=== PATIENT | female | born 1965 | race Caucasian/White ===

== ENCOUNTER → 2017-10-04 10:25 | Outpatient (POV) | payer MEDICARE, MEDICAID, SELFPAY ==
[2017-10-04 10:47] VITALS: BP 152/81; PULSE 76; RESP 18; O2SAT 100; BMI 42.3
--- NOTE | 2017-10-04 11:01 | HMH.PAINSOAP ---
[facility] Pain Management SOAP Note Subjective:: This patient is a pleasant 52-year-old male that is in a wheelchair with a previous history of rheumatoid arthritis and multiple joint pain and back pain. Patient is being seen by us today for follow-up visit after starting diclofenac 75 mg 1 p.o. twice daily. Patient also taking Lyrica. Valium. Butrans patch. These medication from her BP. Patient seems to be doing fair. 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 I was able to communicate with the patient slightly by writing things down Objective:: Patient's awake alert oriented ?3. In no acute distress. Patient sitting in wheelchair. She is deaf so there is an associate professor plant pathology is assisting with translation. Patient has no gross sensory deficit. Patient is wheelchair-bound. Assessment:: History of chronic rheumatoid arthritis. Chronic pain syndrome. Degenerative disc disease lumbar spine Plan:: We will not make any changes at this time. Patient is welcome to see us on a as needed basis. Otherwise, she will continue receiving medications from her PCP.
--- NOTE | 2017-10-04 11:04 | P.CONS_ITS ---
[facility] Pain Management SOAP Note Subjective:: This patient is a pleasant 52-year-old male that is in a wheelchair with a previous history of rheumatoid arthritis and multiple joint pain and back pain. Patient is being seen by us today for follow-up visit after starting diclofenac 75 mg 1 p.o. twice daily. Patient also taking Lyrica. Valium. Butrans patch. These medication from her BP. Patient seems to be doing fair. 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 I was able to communicate with the patient slightly by writing things down Objective:: Patient's awake alert oriented ?3. In no acute distress. Patient sitting in wheelchair. She is deaf so there is an telemetry technician is assisting with translation. Patient has no gross sensory deficit. Patient is wheelchair- bound. Assessment:: History of chronic rheumatoid arthritis. Chronic pain syndrome. Degenerative disc disease lumbar spine Plan:: We will not make any changes at this time. Patient is welcome to see us on a as needed basis. Otherwise, she will continue receiving medications from her PCP.
== END ==
PROVIDERS: PCP Internal Medicine Adolescent Medicine; Visit Provider Nurse Anesthetist, Certified Registered
DX: M06.9 Rheumatoid arthritis, unspecified (principal); G89.4 Chronic pain syndrome
CPT/HCPCS: 99212

== ENCOUNTER 2017-12-15 10:57 | Emergency (ER) | payer MEDICARE, MEDICAID, SELFPAY ==
[2017-12-15 10:58] VITALS: BP 165/74; PULSE 86; RESP 16; O2SAT 97
[2017-12-15 11:00] VITALS: BP 162/90; PULSE 91; RESP 20; TEMP 37.1; O2SAT 99; BMI 31.8
[2017-12-15 11:20] LABS: Basophils % 0.1 % (0.1-2.0); Eosinophils # 0.1 K/mm3 (0.0-0.4); Eosinophils % 1.2 % (0.1-12.0); Hematocrit 34.9 % (37.0-47.0); Hemoglobin 11.1 g/dL (12.2-16.2); Lymphocytes # 1.3 K/mm3 (0.7-4.5); Mean Corpuscular HGB Conc 31.8 g/dL (31.8-35.4); Mean Corpuscular Hemoglobin 25.3 pg (27.0-31.2); Mean Corpuscular Volume 79.7 fl (81-99); Mean Platelet Volume 7.4 fl (7.4-10.4); Monocytes # 0.3 K/mm3 (0.1-1.0); Monocytes % 4.9 % (1.7-9.3); Neutrophils # 4.1 K/mm3 (1.8-7.8); Neutrophils % 71.7 % (37.0-80.0); Platelet Count 280 K/mm3 (142-424); Red Blood Count 4.38 M/mm3 (4.20-5.40); Red Cell Distribution Width 12.9 % (11.5-17.5); White Blood Count 5.7 K/mm3 (4.8-10.8)
--- NOTE | 2017-12-15 11:20 | HMH.EDGENADL ---
ED Disposition Clinical Impression: Rectal bleeding Disposition: Home, Self-Care Condition on Discharge: Good Instructions: DI for Rectal Bleeding Additional Instructions: Dr. Flores will institute treatment and follow-up. Call him for further instructions. Referrals: Jeffery Flores MD [Primary Care Provider] - - Critical Care Critical Care Time: No Attestation: On , the high probability of a clinically significant, sudden or life threatening deterioration of the following system(s) required my full and direct attention, intervention and personal management. The time I documented below is in addition to time spent performing reported procedures but includes the following listed in this critical care notation. Medical Decision Making - Mohsen Inquiry Pt receiving controlled substance: No Vital Signs: 12/15/17 10:58 12/15/17 11:00 12/15/17 13:58 Temperature 98.7 F Temperature Source Oral Pulse Rate [Right Radial] 86 91 H 82 Respiratory Rate 16 20 16 Blood Pressure [Right Arm] 165/74 162/90 159/94 Blood Pressure Mean [Right Arm] 104 114 115 Blood Pressure Source [Right Arm] Automatic Cuff Blood Pressure Position [Right Arm] Sitting 02 Sat by Pulse Oximetry 97 99 96 Oxygen Delivery Method Room Air 12/15/17 16:00 Temperature Temperature Source Pulse Rate [Right Radial] 86 Respiratory Rate 16 Blood Pressure [Right Arm] 141/85 Blood Pressure Mean [Right Arm] 103 Blood Pressure Source [Right Arm] Blood Pressure Position [Right Arm] 02 Sat by Pulse Oximetry 97 Oxygen Delivery Method - Lab Data Lab Results 12/15/17 11:12: WBC 5.7, RBC 4.38, Hgb 11.1 L, Hct 34.9 L, MCV 79.7 L, MCH 25.3 L, MCHC 31.8, RDW 12.9, Plt Count 280, MPV 7.4, Neut % (Auto) 71.7, Lymph % (Auto) 22.0, [place] % (Auto) 4.9, Eos % (Auto) 1.2, Baso % (Auto) 0.1, Neut # (Auto) 4.1, Lymph # (Auto) 1.3, [place] # (Auto) 0.3, Eos # (Auto) 0.1, Baso # (Auto) 0.0 12/15/17 11:25: Stool Occult Blood Positive A 12/15/17 11:27: Sodium 140, Potassium 3.5, Chloride 100, Carbon Dioxide 34 H, Anion Gap 9.5, BUN 12, Creatinine 0.74, Estimated Creat Clear 116, Estimated GFR 83, Est GFR ( Amer) 100, Glucose 135 H, Calcium 9.2, Total Bilirubin 0.3, AST 9 L, ALT 21, Alkaline Phosphatase 158 H, Total Protein 8.0, Albumin 3.7, Globulin 4.3 H, Albumin/Globulin Ratio 0.9 L 12/15/17 11:27: PT 10.0, INR 0.93, APTT 26.5 12/15/17 12:05: Urine Color Yellow, Urine Appearance Clear, Urine pH 7.0, Ur Specific [place] 1.010, Urine Protein Negative, Urine Glucose (UA) Negative, Urine Ketones Negative, Urine Blood 3+, Urine Nitrate Negative, Urine Bilirubin Negative, Urine Urobilinogen 0.2, Ur Leukocyte Esterase Trace, Urine RBC 3-5, Urine WBC 5-10, Ur Squamous Epith Cells 5-10, Urine Bacteria 1+ Result diagrams: 12/15/17 11:12 12/15/17 11:27 Orders (Tests/Meds): ED MEDICATIONS Discontinued Medications Generic Name Dose Route Start Last Admin Trade Name Freq PRN Reason Stop Dose Admin Hydrocodone Bitart/Acetaminophen 1 tab 12/15/17 16:14 12/15/17 16:16 [place] 5/325mg Tablet PO 12/15/17 16:15 1 tab ONCE ONE Administration Diatrizoate Meglum/Diatrizoate Sod 30 ml 12/15/17 11:34 12/15/17 11:38 Gastrografin 66%-10% 30ml PO 12/15/17 11:35 30 ml ONCE ONE Administration Iopamidol 75 ml 12/15/17 14:51 12/15/17 14:51 [id number]; 75ml Vial IV 12/15/17 14:52 75 ml ONCE ONE Administration Sodium Chloride 10 ml 12/15/17 14:51 12/15/17 14:51 Rad-Saline Flush 10ml Syringe IV 12/15/17 14:52 10 ml ONCE ONE Administration - CT Data CT Scan: Abdomen, Pelvis Time Received: 15:[address] Reviewed: Yes: I have viewed the radiologist's interpretation Findings Narrative: No acute intra-abdominal or intrapelvic findings Medical Decision Narrative: 11:20 AM: Family is now here and they can sign to communicate with the patient. Case discussed Dr. Flores. Discharge back [facility] and he will
--- NOTE | 2017-12-15 11:23 | ED_ITS ---
ED Disposition Clinical Impression: Rectal bleeding Disposition: Home, Self-Care Condition on Discharge: Good Instructions: DI for Rectal Bleeding Additional Instructions: Dr. Flores will institute treatment and follow-up. Call him for further instructions. Referrals: Jeffery Flores MD [Primary Care Provider] - - Critical Care Critical Care Time: No Attestation: On , the high probability of a clinically significant, sudden or life threatening deterioration of the following system(s) required my full and direct attention, intervention and personal management. The time I documented below is in addition to time spent performing reported procedures but includes the following listed in this critical care notation. Medical Decision Making - Mohsen Inquiry Pt receiving controlled substance: No Vital Signs: 12/15/17 10:58 12/15/17 11:00 12/15/17 13:58 Temperature 98.7 F Temperature Source Oral Pulse Rate [Right Radial] 86 91 H 82 Respiratory Rate 16 20 16 Blood Pressure [Right Arm] 165/74 162/90 159/94 Blood Pressure Mean [Right Arm] 104 114 115 Blood Pressure Source [Right Arm] Automatic Cuff Blood Pressure Position [Right Arm] Sitting 02 Sat by Pulse Oximetry 97 99 96 Oxygen Delivery Method Room Air 12/15/17 16:00 Temperature Temperature Source Pulse Rate [Right Radial] 86 Respiratory Rate 16 Blood Pressure [Right Arm] 141/85 Blood Pressure Mean [Right Arm] 103 Blood Pressure Source [Right Arm] Blood Pressure Position [Right Arm] 02 Sat by Pulse Oximetry 97 Oxygen Delivery Method - Lab Data Lab Results 12/15/17 11:12: WBC 5.7, RBC 4.38, Hgb 11.1 L, Hct 34.9 L, MCV 79.7 L, MCH 25.3 L, MCHC 31.8, RDW 12.9, Plt Count 280, MPV 7.4, Neut % (Auto) 71.7, Lymph % ( Auto) 22.0, [place] % (Auto) 4.9, Eos % (Auto) 1.2, Baso % (Auto) 0.1, Neut # (Auto ) 4.1, Lymph # (Auto) 1.3, [place] # (Auto) 0.3, Eos # (Auto) 0.1, Baso # (Auto) 0.0 12/15/17 11:25: Stool Occult Blood Positive A 12/15/17 11:27: Sodium 140, Potassium 3.5, Chloride 100, Carbon Dioxide 34 H, Anion Gap 9.5, BUN 12, Creatinine 0.74, Estimated Creat Clear 116, Estimated GFR 83, Est GFR ( Amer) 100, Glucose 135 H, Calcium 9.2, Total Bilirubin 0.3, AST 9 L, ALT 21, Alkaline Phosphatase 158 H, Total Protein 8.0, Albumin 3.7 , Globulin 4.3 H, Albumin/Globulin Ratio 0.9 L 12/15/17 11:27: PT 10.0, INR 0.93, APTT 26.5 12/15/17 12:05: Urine Color Yellow, Urine Appearance Clear, Urine pH 7.0, Ur Specific [place] 1.010, Urine Protein Negative, Urine Glucose (UA) Negative, Urine Ketones Negative, Urine Blood 3+, Urine Nitrate Negative, Urine Bilirubin Negative, Urine Urobilinogen 0.2, Ur Leukocyte Esterase Trace, Urine RBC 3-5, Urine WBC 5-10, Ur Squamous Epith Cells 5-10, Urine Bacteria 1+ Result diagrams: 12/15/17 11:12 12/15/17 11:27 Orders (Tests/Meds): ED MEDICATIONS Discontinued Medications Generic Name Dose Route Start Last Admin Trade Name Freq PRN Reason Stop Dose Admin Hydrocodone Bitart/Acetaminophen 1 tab 12/15/17 16:14 12/15/17 16:16 [place] 5/325mg Tablet PO 12/15/17 16:15 1 tab ONCE ONE Administration Diatrizoate Meglum/Diatrizoate Sod 30 ml 12/15/17 11:34 12/15/17 11:38 Gastrografin 66%-10% 30ml PO 12/15/17 11:35 30 ml ONCE ONE Administration Iopamidol
[2017-12-15 11:50] LABS: Occult Blood,Stool Positive (Negative)
[2017-12-15 11:51] LABS: Activated Partial Thrombo Time 26.5 seconds (23.6-34.0); Alanine Aminotransferase 21 U/L (12-78); Albumin Level 3.7 gm/dL (3.4-5.0); Albumin/Globulin Ratio 0.9 (1.1-1.8); Alkaline Phosphatase 158 U/L (46-116); Anion Gap 9.5 mEq/L (5-15); Aspartate Amino Transferase 9 U/L (15-37); Bilirubin,Total 0.3 mg/dL (0.2-1.0); Blood Urea Nitrogen 12 mg/dL (7-18); Calcium 9.2 mg/dL (8.5-10.1); Carbon Dioxide 34 mmol/L (21.0-32.0); Chloride 100 mmol/L (98-107); Creatinine Clearance Estimated 116 mL/min (0-300); Creatinine,Serum 0.74 mg/dL (0.55-1.02); Estimated Glomerular Filt Rate 83 ml/min (>60); GFR (African American) 100 ML/MIN (>60); Globulin 4.3 gm/dl (1.3-3.2); Glucose 135 mg/dL (74-106); INR 0.93 (0.9-1.1); Potassium 3.5 mmoL/L (3.5-5.1); Sodium 140 mmol/L (136-145)
[2017-12-15 12:18] LABS: Microscopic, Urine URINE MICROSCOPIC (MICROSCOPIC)
[2017-12-15 12:21] LABS: Appearance,Urine CLEAR (Clear); Bilirubin,Urine Negative (Negative); Blood, Urine 3+ (Negative); Color,Urine YELLOW (Yellow); Glucose,Urine (UA) Negative (Negative); Ketones,Urine Negative (Negative); Leukocyte Esterase,Urine TRACE (Negative); Nitrate,Urine Negative (Negative); Protein,Urine Negative (Negative); Urobilinogen,Urine 0.2 EU/dl (0.2)
[2017-12-15 12:50] LABS: Bacteria,Urine 1+ /lpf
--- NOTE | 2017-12-15 13:20 | PC.NURSE ---
Addendum entered by Amanda Whiting RN 12/15/17 14:39: FELISHA Iglesias stated that pt is deaf, states pt is able to read lips. Pt family is at BS at this time, they communicate with her through sign language. Original Note: Report received from FELISHA Iglesias at this time.
[2017-12-15 13:58] VITALS: BP 159/94; PULSE 82; RESP 16; O2SAT 96
--- NOTE | 2017-12-15 14:12 | CT_ITS ---
CT abdomen pelvis w con CLINICAL INDICATION: Rectal Bleeding ITS.REASON: rectal bleeding ORDERING PHYSICIAN: Amando Nolan MD PATIENT AGE: 52 years COMPARISON: 07/13/2016 TECHNIQUE: Axial images obtained with sagittal and coronal reformats. All CT scans at the facility use one or more dose reduction, viz: automated exposure control; ma/kV adjustment per patient size (including targeted exams where dose is matched to indication; i.e. head); or iterative reconstruction technique. PROCEDURE: Oral Contrast: Gastroview IV Contrast: 75 mL's of Isovue-370 . FINDINGS: The lung bases are clear. No focal liver lesion. Prior cholecystectomy. No ductal dilatation. The spleen is unremarkable. There is mild pancreatic atrophy. A rounded fat density lesion involves the left adrenal gland which measures 17 mm consistent with an adrenal myelolipoma. No hydronephrosis or obstructing renal or ureteral calculi. There is a 9 mm isodensity in the mid to lower pole the right kidney consistent with renal cyst. There is a medium-sized umbilical hernia which contains fat. Artifact is present from bilateral hip prosthesis obscuring much of the pelvic structures. No obvious pelvic mass or abnormal fluid collection. There is mild amount retained colonic feces in the pelvis. There is a prominent fatty ileocecal valve variant. Prior hysterectomy. Multilevel degenerative disc disease of the thoracic lumbar spine with multilevel platyspondylia IMPRESSION: 1. No acute abdominal pelvic findings. 2. Multiple nonacute findings as described above.
--- NOTE | 2017-12-15 14:21 | PC.NURSE ---
Pt to CT
--- NOTE | 2017-12-15 15:30 | PC.NURSE ---
RIGO CORTEZ speaking with Dr. Flores
[2017-12-15 16:00] VITALS: BP 141/85; PULSE 86; RESP 16; O2SAT 97
--- NOTE | 2017-12-15 16:08 | PC.NURSE ---
Contacted Yoselin, pt sister in law to notify her that pt will be discharged back to the intermediate per after speaking with Dr. Flores. Yoselin and her were the family present with pt in ER but had stepped out to go to an appt. I notified pt that I have spoken with Yoselin.
[2017-12-15 16:56] VITALS: BP 153/86; PULSE 64; RESP 18; TEMP 36.7; O2SAT 97
--- NOTE | 2017-12-15 17:10 | PC.NURSE ---
Report called to CHAD Bazzi at [facility].
== END 2017-12-15 17:00 | disposition home or self-care (01) ==
PROVIDERS: Emergency Provider Emergency Medicine; Family Provider Internal Medicine Adolescent Medicine; PCP Internal Medicine Adolescent Medicine
DX: K62.5 Hemorrhage of anus and rectum (principal)
CPT/HCPCS: 36415; 74177; 80053; 81001; 82272; 85025; 85610; 85730; 99284; G0328; Q9967

== ENCOUNTER → 2018-02-18 08:24 | Outpatient (CLI) | payer MEDICARE, MEDICAID, SELFPAY ==
--- NOTE | 2018-02-18 08:25 | FL_ITS ---
PR barium enema Ordering Physician: Osiel Peres MD Patient Age: 52 years: Female HISTORY: ITS.REASON: spastic colon,rectal bleeding,anemia TECHNIQUE: Air-contrast BE performed. By Dr. Huff Difficult patient 6 minutes 40 seconds fluoroscopy time COMPARISON : CT abdomen from December 15, 2017 FINDINGS. Difficult patient. Impaired hearing Patient does difficulty following commands, but cooperative. There was some initial mild irritability at the sigmoid colon but eventually did fill. Redundant sigmoid colon with a few diverticuli most evident at the sigmoid colon. This includes a tiny forming prediverticulum as well. We were finally able to fill the entire long colon.. Transverse colon is slightly redundant as well. Adequate filling towards cecum. Generous fatty ileocecal valve noted.. No reflux into the terminal ileum. Appendix not visualized. The images reveal no obstructing or constricting lesion. No persistent filling defect of concern identified. Only some minimal semisolid stool encountered at the at the hepatic flexure and transverse colon, right colon. Only slightly limited study but overall satisfactory. The No obstructing or constricting lesions. We were eventually able obtained. Filling of the right colon and cecum. No significant findings There are a few tiny diverticula and developing prediverticuli seen throughout the sigmoid colon. Clips right upper quadrant from cholecystectomy. IMPRESSION: 1. No suspicious findings at the colon. No obstructing or constricting lesion evident. 2.. I would note that Minimal residual semisolid stool right colon & hepatic flexure slightly decreases the sensitivity of the evaluation of these regions.. But These areas demonstrate normal contour with no prominent findings... 3. Developing Diverticulosis throughout the redundant sigmoid colon. Mild irritability, initial encountered at sigmoid colon but eventual good filling with no lesions evident here. 4. Bilateral JOSE... Fracture line medial left acetabulum, beneath acetabular cup prosthesis.. Likely long-standing fracture defect. Similar appearance seen on November CT supporting this long-standing nature- but warrants ongoing ORTHOPEDIC Follow-Up, particularly if they are unaware of such.
== END ==
PROVIDERS: Family Provider Internal Medicine Adolescent Medicine; PCP Internal Medicine Adolescent Medicine; Visit Provider Surgery
DX: K62.5 Hemorrhage of anus and rectum (principal); K58.9 Irritable bowel syndrome, unspecified; D64.9 Anemia, unspecified
CPT/HCPCS: 74270

== ENCOUNTER → 2018-03-10 08:25 | Outpatient (CLI) | payer MEDICARE, MEDICAID, SELFPAY ==
--- NOTE | 2018-03-10 08:26 | FL_ITS ---
FL upper GI small bowel HISTORY: Stomach pain, anemia ITS.REASON: stomach pain ORDERING PHYSICIAN: Osiel Peres MD PATIENT AGE: 52 years FINDINGS: Manager Animation exam shows bilateral total hip prosthesis. A fracture is noted through the left acetabulum extending into the medial cortex of the hip. This is old. There was mild esophageal dysmotility with tertiary contractions. No esophageal lesion or hernia evident. These make and duodenum are unremarkable without evidence of mass or ulcer. Small bowel has an unremarkable appearance. No obstruction, mucosal or millimeters, or masses are evident. Spot views of the terminal ileum are unremarkable. IMPRESSION: 1. Mild esophageal dysmotility 2. Otherwise negative upper GI and small bowel follow-through FLUOROSCOPY TIME : 2 minutes and 15 seconds.
== END ==
PROVIDERS: Family Provider Internal Medicine Adolescent Medicine; PCP Internal Medicine Adolescent Medicine; Visit Provider Surgery
DX: K58.9 Irritable bowel syndrome, unspecified (principal); K62.5 Hemorrhage of anus and rectum; D64.9 Anemia, unspecified
CPT/HCPCS: 74245

== ENCOUNTER 2019-07-06 08:00 | Outpatient (RCR) | payer MEDICARE, MEDICAID, SELFPAY ==
--- NOTE | 2019-06-19 09:59 | HMH.PTOPWND ---
Rehab Outpt Wound Evaluation Rehab OP Wound Evaluation Start: 06/19/19 08:59 Freq: Status: Active Protocol: Document 06/19/19 09:28 AVELINO (Rec: 06/19/19 09:37 PHORNE [id number]) Electronically Signed By Damion Blanca, PT 06/19/19 09:28 Subjective/History History History Pt is 54 yowf who presents with c/o B LE edema for several years, now worse with blisters and open sore. She is deaf and non-verbal at baseline, but can read and understand sign language. She has on large open sore on the left lower leg which is painful to touch. Both loer legs are sore and tender to palpation. She also in unable to stand and uses a powered w/ c for all mobility. She resides at a [facility] and they use a lift to transfer her to/from the chair. She has hx of anxiety, depression, HTN, HL, DM-II, seizures, anemia, B JOSE, and right knee surgery. Subjective Subjective Pt c/o pain in B lower legs, left > right. Wound Eval Wound Left Medial Sapp Wound Type Stasis Ulcer Wound Length (cm) 3.0 Wound Width (cm) 4.0 Wound Bed Appearance Beefy Red,Yellow Percentage Granulated (%) 95 Percentage of Slough (%) 5 Wound Margins Description Well Defined Surrounding Tissue Appearance [place] Edema Type Pitting Edema Degree 3+ Query Text:1+ Trace, Barely Detectable, Rebound 15-30 seconds 2+ Moderate, Slight Indentation, Rebound 10-20 seconds 3+ Deep, Deeper Indentation, Rebound > 30 seconds 4+ Very Deep, Rebound > 60 seconds Edema Appearance Weeping,Tight Drainage Description Serous Drainage Amount Large Primary Dressing Unna Boot Wound Secondary Dressing Type Gauze Roll/Wrap,Adhering Gauze Roll Wound Debridement Method Gauze Wound Debridement Amount of Tissue Minimal Removed Dressing Change Patient Tolerance Tolerated Well Lymphedema Eval Classification of Lymphedema Secondary Lymphedema Yes Stemmer's sign Stemmer's Sign yes
== END 2019-07-06 08:05 | disposition home or self-care (01) ==
LOC: PT 08:00
PROVIDERS: PCP Internal Medicine Adolescent Medicine; Visit Provider Internal Medicine Adolescent Medicine
DX: R60.9 Edema, unspecified (principal); I89.0 Lymphedema, not elsewhere classified
CPT/HCPCS: 29580; 97140; 97163; 97597

== ENCOUNTER → 2020-06-28 10:07 | Outpatient (CLI) | payer MEDICARE, MEDICAID, SELFPAY ==
--- NOTE | 2020-06-28 10:16 | CT_ITS ---
Procedure: CT ANGIO ABDOMEN/FEMORAL CLINICAL HISTORY: nonhealing venous ulcer bilat non healing ulcers on feet COMPARISON: CT ABDPELW CT abdomen pelvis w con from 12/15/2017 TECHNIQUE: IV Contrast: 100ml Optiray 350 Axial images obtained with sagittal and coronal reformats. All CT scans at the facility use one or more dose reduction, viz: automated exposure control, ma/kV adjustment per patient size (including targeted exams where dose is matched to indication, i.e. head), or iterative reconstruction technique. FINDINGS: There is a mild amount of calcific plaque along the infrarenal abdominal aorta. No aortic stenosis or aneurysmal dilatation. There are 2 left renal arteries and 1 right renal artery. No evidence of renal artery stenosis. The celiac and SMA and PAVAN are unremarkable. Artifact is present from bilateral hip prosthesis which obscures fine detail in this area. The arterial bolus is also somewhat less than optimal but satisfactory. Other than the metallic artifact, the iliac and femoral vessels have an unremarkable appearance with no evidence of stenosis or occlusion. The superficial femoral arteries pop and popliteal arteries are unremarkable. There is 3 vessel runoff to the ankles on both sides. Nonvascular findings: scattered small mesenteric and retroperitoneal lymph nodes. Small umbilical hernia containing fat. Artifact from bilateral hip prosthesis. There is some mild nonspecific thickening of the ascending colon and transverse colon which could be due to nondistention or colitis. There is a moderate amount of subcutaneous edema in the lower extremities bilaterally. IMPRESSION: 1. Unremarkable abdominal aortogram and bilateral lower extremity runoff. Please see above for detail. 2. Other nonacute findings as described above. Dictated by: Axel Jimenez MD 06/30/2020 09:06 Axel Jimenez MD in [place] 06/30/2020 09:06
== END ==
PROVIDERS: PCP Internal Medicine Adolescent Medicine; Visit Provider Internal Medicine Adolescent Medicine
DX: L97.211 Non-pressure chronic ulcer of right calf limited to breakdown of skin (principal); L97.221 Non-pressure chronic ulcer of left calf limited to breakdown of skin
CPT/HCPCS: 75635; Q9967

== ENCOUNTER → 2020-08-15 10:01 | Outpatient (CLI) | payer MEDICARE, MEDICAID, SELFPAY ==
[2020-08-15 10:46] LABS: Basophils % 0.1 % (0.1-2.0); Eosinophils % 0.2 % (0.1-12.0); Hematocrit 29.2 % (37.0-47.0); Hemoglobin 8.9 g/dL (12.2-16.2); Lymphocytes # 1.3 K/mm3 (0.7-4.5); Lymphocytes % 18.8 % (10-50); Mean Corpuscular HGB Conc 30.5 g/dL (31.8-35.4); Mean Corpuscular Volume 78.7 fl (81-99); Mean Platelet Volume 7.3 fl (7.4-10.4); Monocytes # 0.4 K/mm3 (0.1-1.0); Monocytes % 5.6 % (1.7-9.3); Neutrophils # 5.3 K/mm3 (1.8-7.8); Neutrophils % 75.3 % (37.0-80.0); Platelet Count 401 K/mm3 (142-424); Red Blood Count 3.71 M/mm3 (4.20-5.40); Red Cell Distribution Width 17.1 % (11.5-17.5)
[2020-08-15 13:50] LABS: Folate 3.74 ng/mL; Vitamin B12 > 1000 pg/mL (239-931)
[2020-08-15 14:09] LABS: Ferritin 26.5 ng/ml (11.1-264)
[2020-08-16 16:20] LABS: Haptoglobin 339 mg/dL (33-346)
[2020-08-16 17:07] LABS: Albumin 3.2 g/dL (2.9-4.4); Alpha-1-Globulin 0.2 g/dL (0.0-0.4); Alpha-2-Globulin 1.2 g/dL (0.4-1.0); Free Kappa Lt Chains 50.5 mg/L (3.3-19.4); Free Lambda Lt Chains 32.1 mg/L (5.7-26.3); Gamma Globulin 0.9 g/dL (0.4-1.8); Hemoglobin (Hgb) Solubility Negative (Negative); Immunoglobulin A, Qn 138 mg/dL (87-352); Immunoglobulin G, Qn 962 mg/dL (586-1602); Immunoglobulin M, Qn 41 mg/dL (26-217); Protein, Total 6.5 g/dL (6.0-8.5)
== END ==
PROVIDERS: Visit Provider Internal Medicine Medical Oncology
DX: D64.9 Anemia, unspecified (principal)
CPT/HCPCS: 36415; 82607; 82728; 82746; 82784; 83010; 83021; 83883; 84155; 84165; 85025; 85660; 86334

== ENCOUNTER → 2020-10-08 15:58 | Outpatient (CLI) | payer MEDICARE, MEDICAID, SELFPAY ==
[2020-10-08 16:11] LABS: Basophils % 0.2 % (0.1-2.0); Eosinophils % 0.4 % (0.1-12.0); Hematocrit 25.8 % (37.0-47.0); Lymphocytes # 1.4 K/mm3 (0.7-4.5); Lymphocytes % 16.6 % (10-50); Mean Corpuscular HGB Conc 30.6 g/dL (31.8-35.4); Mean Corpuscular Hemoglobin 24.3 pg (27.0-31.2); Mean Corpuscular Volume 79.3 fl (81-99); Mean Platelet Volume 7.9 fl (7.4-10.4); Monocytes # 0.4 K/mm3 (0.1-1.0); Monocytes % 5.3 % (1.7-9.3); Neutrophils # 6.4 K/mm3 (1.8-7.8); Neutrophils % 77.5 % (37.0-80.0); Platelet Count 336 K/mm3 (142-424); Red Blood Count 3.25 M/mm3 (4.20-5.40); White Blood Count 8.2 K/mm3 (4.8-10.8)
[2020-10-08 16:13] LABS: Hemoglobin 7.9 g/dL (12.2-16.2)
== END ==
PROVIDERS: Visit Provider Nurse Practitioner Family
DX: D64.9 Anemia, unspecified (principal)
CPT/HCPCS: 85025

== ENCOUNTER → 2020-10-21 11:09 | Outpatient (CLI) | payer MEDICARE, MEDICAID, SELFPAY ==
[2020-10-21 14:30] LABS: Basophils % 0.3 % (0.1-2.0); Eosinophils # 0.1 K/mm3 (0.0-0.4); Eosinophils % 0.8 % (0.1-12.0); Hematocrit 26.9 % (37.0-47.0); Hemoglobin 8.4 g/dL (12.2-16.2); Lymphocytes # 1.3 K/mm3 (0.7-4.5); Lymphocytes % 15.9 % (10-50); Mean Corpuscular HGB Conc 31.3 g/dL (31.8-35.4); Mean Corpuscular Hemoglobin 23.8 pg (27.0-31.2); Mean Corpuscular Volume 75.9 fl (81-99); Mean Platelet Volume 8.9 fl (7.4-10.4); Monocytes # 0.4 K/mm3 (0.1-1.0); Monocytes % 4.4 % (1.7-9.3); Neutrophils # 6.3 K/mm3 (1.8-7.8); Neutrophils % 78.7 % (37.0-80.0); Platelet Count 325 K/mm3 (142-424); Red Blood Count 3.55 M/mm3 (4.20-5.40); Red Cell Distribution Width 16.3 % (11.5-17.5)
[2020-10-22 15:06] LABS: Occult Blood,Stool Negative (Negative)
== END ==
PROVIDERS: Visit Provider Nurse Practitioner Family
DX: D64.9 Anemia, unspecified (principal)
CPT/HCPCS: 82272; 85025; G0328

== ENCOUNTER → 2020-11-26 09:57 | Outpatient (CLI) | payer MEDICARE, MEDICAID, SELFPAY ==
[2020-11-26 14:06] LABS: Chloride 98 mmol/L (98-107)
[2020-11-26 14:07] LABS: Potassium 3.5 mmoL/L (3.5-5.1); Sodium 139 mmol/L (136-145)
[2020-11-26 14:09] LABS: Alanine Aminotransferase 17 U/L (12-78); Alkaline Phosphatase 95 U/L (38-126); Aspartate Amino Transferase 20 U/L (14-36); Bilirubin,Total 0.2 mg/dl (0.2-1.3); Blood Urea Nitrogen 19 mg/dl (7-17); Estimated Glomerular Filt Rate 39 ml/min (>60); GFR (African American) 47 ML/MIN (>60)
[2020-11-26 14:10] LABS: Albumin Level 3.5 g/dl (3.5-5.0); Albumin/Globulin Ratio 1.3 (1.1-1.8); Anion Gap 12.5 mEq/L (5-15); Calcium 8.9 mg/dl (8.4-10.2); Carbon Dioxide 32 mmol/L (22.0-30.0); Globulin 2.8 g/dL (1.3-3.2); Glucose 265 mg/dl (74-100); Total Protein,Serum 6.3 g/dl (6.3-8.2)
[2020-11-26 14:56] LABS: Basophils % 0.1 % (0.1-2.0); Eosinophils % 0.4 % (0.1-12.0); Hematocrit 25.1 % (37.0-47.0); Lymphocytes # 1.2 K/mm3 (0.7-4.5); Lymphocytes % 15.8 % (10-50); Mean Corpuscular HGB Conc 29.4 g/dL (31.8-35.4); Mean Corpuscular Hemoglobin 22.2 pg (27.0-31.2); Mean Corpuscular Volume 75.6 fl (81-99); Mean Platelet Volume 8.6 fl (7.4-10.4); Monocytes # 0.5 K/mm3 (0.1-1.0); Monocytes % 6.1 % (1.7-9.3); Neutrophils # 5.8 K/mm3 (1.8-7.8); Neutrophils % 77.6 % (37.0-80.0); Platelet Count 307 K/mm3 (142-424); Red Blood Count 3.31 M/mm3 (4.20-5.40); White Blood Count 7.4 K/mm3 (4.8-10.8)
[2020-11-26 14:59] LABS: Hemoglobin 7.4 g/dL (12.2-16.2)
== END ==
PROVIDERS: Visit Provider Nurse Practitioner Family
DX: K62.5 Hemorrhage of anus and rectum (principal)
CPT/HCPCS: 36415; 80053; 85025

== ENCOUNTER → 2020-12-30 09:26 | Outpatient (CLI) | payer MEDICARE, MEDICAID, SELFPAY ==
[2020-12-30 15:40] LABS: Basophils % 0.2 % (0.1-2.0); Eosinophils % 0.1 % (0.1-12.0); Hematocrit 25.7 % (37.0-47.0); Lymphocytes # 1.2 K/mm3 (0.7-4.5); Lymphocytes % 15.4 % (10-50); Mean Corpuscular HGB Conc 29.7 g/dL (31.8-35.4); Mean Corpuscular Hemoglobin 22.2 pg (27.0-31.2); Mean Corpuscular Volume 74.9 fl (81-99); Monocytes # 0.4 K/mm3 (0.1-1.0); Monocytes % 4.7 % (1.7-9.3); Neutrophils # 6.3 K/mm3 (1.8-7.8); Neutrophils % 79.6 % (37.0-80.0); Platelet Count 273 K/mm3 (142-424); Red Blood Count 3.43 M/mm3 (4.20-5.40); Red Cell Distribution Width 16.8 % (11.5-17.5)
[2020-12-30 15:52] LABS: Chloride 98 mmol/L (98-107)
[2020-12-30 15:53] LABS: Hemoglobin 7.6 g/dL (12.2-16.2); Potassium 3.3 mmoL/L (3.5-5.1); Sodium 139 mmol/L (136-145)
[2020-12-30 15:55] LABS: Alanine Aminotransferase 17 U/L (12-78); Alkaline Phosphatase 96 U/L (38-126); Aspartate Amino Transferase 21 U/L (14-36); Bilirubin,Total 0.2 mg/dl (0.2-1.3); Blood Urea Nitrogen 18 mg/dl (7-17); Estimated Glomerular Filt Rate 47 ml/min (>60); GFR (African American) 57 ML/MIN (>60)
[2020-12-30 15:56] LABS: Albumin Level 3.7 g/dl (3.5-5.0); Albumin/Globulin Ratio 1.5 (1.1-1.8); Anion Gap 13.3 mEq/L (5-15); Calcium 8.5 mg/dl (8.4-10.2); Carbon Dioxide 31 mmol/L (22.0-30.0); Globulin 2.4 g/dL (1.3-3.2); Glucose 152 mg/dl (74-100); Total Protein,Serum 6.1 g/dl (6.3-8.2)
== END ==
PROVIDERS: Visit Provider Internal Medicine Adolescent Medicine
DX: G80.9 Cerebral palsy, unspecified (principal); D64.9 Anemia, unspecified
CPT/HCPCS: 36415; 80053; 85025

== ENCOUNTER → 2021-01-06 07:53 | Outpatient (CLI) | payer MEDICARE, MEDICAID, SELFPAY ==
[2021-01-06 13:54] LABS: Basophils % 0.3 % (0.1-2.0); Eosinophils # 0.1 K/mm3 (0.0-0.4); Eosinophils % 1.1 % (0.1-12.0); Hemoglobin 8.2 g/dL (12.2-16.2); Lymphocytes # 1.4 K/mm3 (0.7-4.5); Lymphocytes % 19.8 % (10-50); Mean Corpuscular HGB Conc 30.2 g/dL (31.8-35.4); Mean Corpuscular Hemoglobin 22.5 pg (27.0-31.2); Mean Corpuscular Volume 74.2 fl (81-99); Mean Platelet Volume 7.8 fl (7.4-10.4); Monocytes # 0.4 K/mm3 (0.1-1.0); Monocytes % 5.8 % (1.7-9.3); Neutrophils # 5.3 K/mm3 (1.8-7.8); Neutrophils % 72.9 % (37.0-80.0); Platelet Count 299 K/mm3 (142-424); Red Blood Count 3.63 M/mm3 (4.20-5.40); Red Cell Distribution Width 16.4 % (11.5-17.5); White Blood Count 7.2 K/mm3 (4.8-10.8)
== END ==
PROVIDERS: Visit Provider Nurse Practitioner Family
DX: D64.9 Anemia, unspecified (principal)
CPT/HCPCS: 36415; 85025

== ENCOUNTER → 2021-01-13 15:47 | Outpatient (POV) | payer MEDICARE, MEDICAID, SELFPAY | PROVIDERS: Visit Provider Nurse Practitioner Family | DX: Z00.00 Encounter for general adult medical examination without abnormal findings (principal) ==

== ENCOUNTER → 2021-02-11 07:48 | Outpatient (CLI) | payer MEDICARE, MEDICAID, SELFPAY ==
[2021-02-11 14:24] LABS: Chloride 98 mmol/L (98-107); Sodium 139 mmol/L (136-145)
[2021-02-11 14:26] LABS: Basophils % 0.2 % (0.1-2.0); Blood Urea Nitrogen 23 mg/dl (7-17); Eosinophils % 0.4 % (0.1-12.0); Estimated Glomerular Filt Rate 43 ml/min (>60); GFR (African American) 52 ML/MIN (>60); Hematocrit 26.6 % (37.0-47.0); Hemoglobin 8.2 g/dL (12.2-16.2); Lymphocytes # 1.3 K/mm3 (0.7-4.5); Mean Corpuscular HGB Conc 30.8 g/dL (31.8-35.4); Mean Corpuscular Hemoglobin 22.6 pg (27.0-31.2); Mean Corpuscular Volume 73.6 fl (81-99); Mean Platelet Volume 8.4 fl (7.4-10.4); Monocytes # 0.4 K/mm3 (0.1-1.0); Monocytes % 5.7 % (1.7-9.3); Neutrophils # 5.2 K/mm3 (1.8-7.8); Neutrophils % 74.7 % (37.0-80.0); Platelet Count 306 K/mm3 (142-424); Red Blood Count 3.61 M/mm3 (4.20-5.40); Red Cell Distribution Width 17.7 % (11.5-17.5)
[2021-02-11 14:27] LABS: Alanine Aminotransferase 21 U/L (12-78); Albumin Level 3.5 g/dl (3.5-5.0); Albumin/Globulin Ratio 1.3 (1.1-1.8); Alkaline Phosphatase 101 U/L (38-126); Aspartate Amino Transferase 26 U/L (14-36); Bilirubin,Total 0.3 mg/dl (0.2-1.3); Calcium 8.6 mg/dl (8.4-10.2); Carbon Dioxide 32 mmol/L (22.0-30.0); Chol/HDL Ratio 4.1 (1-3.5); Cholesterol 168 mg/dl (140-200); Globulin 2.6 g/dL (1.3-3.2); Glucose 129 mg/dl (74-100); HDL Cholesterol 41 mg/dl (40-60); Iron 25 ug/dL (37-170); Total Protein,Serum 6.1 g/dl (6.3-8.2); Triglycerides 262 mg/dl (30-150); VLDL Cholesterol 52 mg/dL (0-40)
[2021-02-11 14:37] LABS: Total Iron Binding Capacity 299 ug/dL (265-497)
[2021-02-11 14:39] LABS: Direct LDL Cholesterol 86.84 mg/dL (100-129)
[2021-02-11 15:47] LABS: Hemoglobin A1C 7.8 % (4.0-6.0)
[2021-02-11 16:18] LABS: Vitamin B12 > 1000 pg/mL (239-931)
[2021-02-18 04:12] LABS: Oxcarbazepine 28 ug/mL (10-35)
== END ==
PROVIDERS: Visit Provider Nurse Practitioner Family
DX: G80.9 Cerebral palsy, unspecified (principal); I87.2 Venous insufficiency (chronic) (peripheral); E55.9 Vitamin D deficiency, unspecified; R56.9 Unspecified convulsions; E11.9 Type 2 diabetes mellitus without complications; Z79.84 Long term (current) use of oral hypoglycemic drugs
CPT/HCPCS: 36415; 80053; 80061; 80183; 82607; 83036; 83540; 83550; 85025

== ENCOUNTER → 2021-05-15 07:09 | Outpatient (CLI) | payer MEDICARE, MEDICAID, SELFPAY ==
[2021-05-15 15:31] LABS: Alanine Aminotransferase 27 U/L (12-78); Albumin Level 3.6 g/dl (3.5-5.0); Albumin/Globulin Ratio 1.4 (1.1-1.8); Alkaline Phosphatase 112 U/L (38-126); Anion Gap 12.4 mEq/L (5-15); Aspartate Amino Transferase 26 U/L (14-36); Bilirubin,Total 0.3 mg/dl (0.2-1.3); Blood Urea Nitrogen 20 mg/dl (7-17); Calcium 8.8 mg/dl (8.4-10.2); Carbon Dioxide 32 mmol/L (22.0-30.0); Chloride 99 mmol/L (98-107); Chol/HDL Ratio 4.9 (1-3.5); Cholesterol 176 mg/dl (140-200); Estimated Glomerular Filt Rate 47 ml/min (>60); GFR (African American) 56 ML/MIN (>60); Globulin 2.5 g/dL (1.3-3.2); Glucose 196 mg/dl (74-100); HDL Cholesterol 36 mg/dl (40-60); Potassium 4.4 mmoL/L (3.5-5.1); Sodium 139 mmol/L (136-145); Total Protein,Serum 6.1 g/dl (6.3-8.2); Triglycerides 378 mg/dl (30-150); VLDL Cholesterol 76 mg/dL (0-40)
[2021-05-15 15:32] LABS: Basophils % 0.3 % (0.1-2.0); Eosinophils % 0.3 % (0.1-12.0); Hematocrit 26.8 % (37.0-47.0); Hemoglobin 8.4 g/dL (12.2-16.2); Lymphocytes # 1.2 K/mm3 (0.7-4.5); Lymphocytes % 21.4 % (10-50); Mean Corpuscular HGB Conc 31.3 g/dL (31.8-35.4); Mean Corpuscular Hemoglobin 23.5 pg (27.0-31.2); Mean Corpuscular Volume 75.1 fl (81-99); Mean Platelet Volume 8.2 fl (7.4-10.4); Monocytes # 0.4 K/mm3 (0.1-1.0); Monocytes % 6.3 % (1.7-9.3); Neutrophils # 4.1 K/mm3 (1.8-7.8); Neutrophils % 71.7 % (37.0-80.0); Platelet Count 258 K/mm3 (142-424); Red Blood Count 3.57 M/mm3 (4.20-5.40); Red Cell Distribution Width 15.9 % (11.5-17.5); White Blood Count 5.7 K/mm3 (4.8-10.8)
[2021-05-15 15:42] LABS: Direct LDL Cholesterol 87.58 mg/dL (100-129)
[2021-05-15 16:16] LABS: Hemoglobin A1C 8.2 % (4.0-6.0)
[2021-05-18 15:37] LABS: Oxcarbazepine 23 ug/mL (10-35)
== END ==
LOC: LAB.CARL 07:10 → HMH.JM 07:17
PROVIDERS: Visit Provider Nurse Practitioner Family
DX: G80.9 Cerebral palsy, unspecified (principal); I10 Essential (primary) hypertension; E11.9 Type 2 diabetes mellitus without complications; E78.5 Hyperlipidemia, unspecified; Z51.81 Encounter for therapeutic drug level monitoring; Z79.84 Long term (current) use of oral hypoglycemic drugs
CPT/HCPCS: 36415; 80053; 80061; 80183; 83036; 85025

== ENCOUNTER → 2021-08-12 19:00 | Outpatient (CLI) | payer MEDICARE, MEDICAID, SELFPAY ==
[2021-08-12 19:19] LABS: Basophils % 0.4 % (0.1-2.0); Eosinophils % 0.1 % (0.1-12.0); Hematocrit 31.6 % (37.0-47.0); Hemoglobin 9.7 g/dL (12.2-16.2); Lymphocytes # 1.6 K/mm3 (0.7-4.5); Mean Corpuscular HGB Conc 30.8 g/dL (31.8-35.4); Mean Corpuscular Hemoglobin 24.2 pg (27.0-31.2); Mean Corpuscular Volume 78.4 fl (81-99); Mean Platelet Volume 8.8 fl (7.4-10.4); Monocytes # 0.4 K/mm3 (0.1-1.0); Monocytes % 5.3 % (1.7-9.3); Neutrophils # 5.1 K/mm3 (1.8-7.8); Neutrophils % 72.2 % (37.0-80.0); Platelet Count 278 K/mm3 (142-424); Red Blood Count 4.03 M/mm3 (4.20-5.40); Red Cell Distribution Width 15.8 % (11.5-17.5); White Blood Count 7.1 K/mm3 (4.8-10.8)
[2021-08-12 19:40] LABS: Alanine Aminotransferase 26 U/L (12-78); Albumin Level 3.6 g/dl (3.5-5.0); Albumin/Globulin Ratio 1.2 (1.1-1.8); Alkaline Phosphatase 156 U/L (38-126); Anion Gap 13.4 mEq/L (5-15); Aspartate Amino Transferase 33 U/L (14-36); Bilirubin,Total 0.2 mg/dl (0.2-1.3); Blood Urea Nitrogen 17 mg/dl (7-17); Calcium 8.7 mg/dl (8.4-10.2); Carbon Dioxide 30 mmol/L (22.0-30.0); Chloride 99 mmol/L (98-107); Chol/HDL Ratio 2.3 (1-3.5); Cholesterol 130 mg/dl (140-200); Estimated Glomerular Filt Rate 58 ml/min (>60); GFR (African American) 70 ML/MIN (>60); Globulin 2.9 g/dL (1.3-3.2); Glucose 200 mg/dl (74-100); HDL Cholesterol 57 mg/dl (40-60); Potassium 4.4 mmoL/L (3.5-5.1); Sodium 138 mmol/L (136-145); Total Protein,Serum 6.5 g/dl (6.3-8.2); Triglycerides 174 mg/dl (30-150); VLDL Cholesterol 35 mg/dL (0-40)
[2021-08-12 19:51] LABS: Direct LDL Cholesterol 52.08 mg/dL (100-129)
[2021-08-19 00:07] LABS: Oxcarbazepine 36 ug/mL (10-35)
== END ==
PROVIDERS: Visit Provider Nurse Practitioner Family
DX: D64.9 Anemia, unspecified (principal); R73.9 Hyperglycemia, unspecified; Z79.899 Other long term (current) drug therapy
CPT/HCPCS: 36415; 80053; 80061; 80183; 83036; 85025

== ENCOUNTER → 2021-08-25 08:06 | Outpatient (CLI) | payer MEDICARE, MEDICAID, SELFPAY ==
[2021-08-25 14:24] LABS: Chloride 89 mmol/L (98-107); Potassium 3.3 mmoL/L (3.5-5.1)
[2021-08-25 14:27] LABS: Blood Urea Nitrogen 16 mg/dl (7-17); Calcium 8.6 mg/dl (8.4-10.2); Carbon Dioxide 31 mmol/L (22.0-30.0); Estimated Glomerular Filt Rate 52 ml/min (>60); GFR (African American) 62 ML/MIN (>60); Glucose 175 mg/dl (74-100)
[2021-08-25 18:44] LABS: Anion Gap 10.3 mEq/L (5-15); Sodium 127 mmol/L (136-145)
== END ==
PROVIDERS: Visit Provider Nurse Practitioner Family
DX: Z01.812 Encounter for preprocedural laboratory examination (principal)
CPT/HCPCS: 36415; 80048

== ENCOUNTER → 2021-08-26 07:49 | Outpatient (CLI) | payer MEDICARE, MEDICAID, SELFPAY ==
[2021-08-26 16:08] LABS: Anion Gap 7.6 mEq/L (5-15); Blood Urea Nitrogen 19 mg/dl (7-17); Calcium 8.7 mg/dl (8.4-10.2); Carbon Dioxide 34 mmol/L (22.0-30.0); Chloride 98 mmol/L (98-107); Estimated Glomerular Filt Rate 52 ml/min (>60); GFR (African American) 62 ML/MIN (>60); Glucose 146 mg/dl (74-100); Potassium 3.6 mmoL/L (3.5-5.1); Sodium 136 mmol/L (136-145)
== END ==
PROVIDERS: Visit Provider Nurse Practitioner Family
DX: I50.32 Chronic diastolic (congestive) heart failure (principal)
CPT/HCPCS: 36415; 80048

== ENCOUNTER → 2021-08-26 09:51 | Outpatient (CLI) | payer MEDICARE, MEDICAID, SELFPAY | PROVIDERS: PCP Internal Medicine Adolescent Medicine; Visit Provider Internal Medicine Adolescent Medicine | DX: I70.213 Atherosclerosis of native arteries of extremities with intermittent claudication, bilateral legs (principal) ==

== ENCOUNTER → 2021-09-15 07:34 | Outpatient (CLI) | payer MEDICARE, MEDICAID, SELFPAY ==
[2021-09-19 05:32] LABS: Oxcarbazepine 25 ug/mL (10-35)
== END ==
PROVIDERS: Visit Provider Nurse Practitioner Family
DX: Z51.81 Encounter for therapeutic drug level monitoring (principal)
CPT/HCPCS: 36415; 80183

== ENCOUNTER → 2021-09-26 13:06 | Outpatient (CLI) | payer MEDICARE, MEDICAID, SELFPAY ==
[2021-09-26 13:52] LABS: Chloride 95 mmol/L (98-107); Sodium 137 mmol/L (136-145)
[2021-09-26 13:53] LABS: Potassium 4.5 mmoL/L (3.5-5.1)
[2021-09-26 13:55] LABS: Blood Urea Nitrogen 20 mg/dl (7-17); Estimated Glomerular Filt Rate 52 ml/min (>60); GFR (African American) 62 ML/MIN (>60)
[2021-09-26 13:56] LABS: Anion Gap 15.5 mEq/L (5-15); Calcium 9.2 mg/dl (8.4-10.2); Carbon Dioxide 31 mmol/L (22.0-30.0); Glucose 373 mg/dl (74-100)
[2021-09-26 14:02] LABS: Basophils % 0.3 % (0.1-2.0); Eosinophils % 0.1 % (0.1-12.0); Hematocrit 28.9 % (37.0-47.0); Hemoglobin 8.7 g/dL (12.2-16.2); Lymphocytes # 1.1 K/mm3 (0.7-4.5); Mean Corpuscular HGB Conc 30.2 g/dL (31.8-35.4); Mean Corpuscular Hemoglobin 23.7 pg (27.0-31.2); Mean Corpuscular Volume 78.6 fl (81-99); Mean Platelet Volume 8.1 fl (7.4-10.4); Monocytes # 0.4 K/mm3 (0.1-1.0); Monocytes % 6.4 % (1.7-9.3); Neutrophils # 4.8 K/mm3 (1.8-7.8); Neutrophils % 76.2 % (37.0-80.0); Platelet Count 347 K/mm3 (142-424); Red Blood Count 3.68 M/mm3 (4.20-5.40); Red Cell Distribution Width 16.6 % (11.5-17.5); White Blood Count 6.2 K/mm3 (4.8-10.8)
== END ==
PROVIDERS: Visit Provider Nurse Practitioner Family
DX: Z01.812 Encounter for preprocedural laboratory examination (principal); I10 Essential (primary) hypertension
CPT/HCPCS: 80048; 85025

== ENCOUNTER → 2021-10-01 08:21 | Day surgery (SDC) | payer MEDICARE, MEDICAID, SELFPAY ==
[2021-10-01] VITALS (11 sets, daily range): BP systolic 109–175; BP diastolic 41–101; PULSE 77–96; RESP 13–20; TEMP 36.7; O2SAT 90–96; BMI 45.8
--- NOTE | 2021-10-01 | IR_ITS ---
APPROVED REPORT Patient Location: Outpatient Vehicle Detailer: LAUREN Morales RT (R) PROCEDURES Catheter placed in the abdominal aorta Bilateral iliofemoral runoff INDICATION [place] claudication class V, Peripheral artery disease Informed consent was obtained prior to the procedure. COMPLICATIONS NONE Estimated Blood Loss: LESS THAN 10 ML TECHNIQUE 1% lidocaine used anesthetize anterior aspect of the right wrist. The right radial artery was accessed via Salinger technique and a 6 [place] hydrophilic sheath was placed in the right radial artery. An arterial cocktail was administered and the pigtail catheter was then advanced under fluoroscopic guidance into the abdominal aorta where abdominal aortography with bilateral iliac runoff was performed. At the end of the procedure the apparatus was removed the sheath was removed good hemostasis was achieved using TR banding patient was transferred the postop putting her stable condition ANGIOGRAPHIC RESULTS Distal abdominal aorta is normal Bilateral common internal and external iliac arteries are normal Bilateral common femoral arteries are normal Bilateral profunda femoris arteries are normal Bilateral superficial femoral and popliteal arteries are normal There is three-vessel runoff below the knees bilaterally IMPRESSION Three-vessel runoff Ulcers likely stemming from venous insufficiency PLAN 1. Treatment of venous insufficiency Electronically signed by : Dilan Day MD 10/01/2021 12:26:40
[2021-10-01 09:50] LABS: Coronavirus 19, PCR Not Detected (NotDetected); Influenza A, PCR Not Detected (NotDetected); Influenza B, PCR Not Detected (NotDetected)
[2021-10-01 09:55] LABS: Basophils # 0.1 K/mm3 (0-0.2); Eosinophils % 0.2 % (0.1-12.0); Hemoglobin 9.2 g/dL (12.2-16.2); Lymphocytes # 1.2 K/mm3 (0.7-4.5); Lymphocytes % 17.3 % (10-50); Mean Corpuscular HGB Conc 31.5 g/dL (31.8-35.4); Mean Corpuscular Hemoglobin 24.2 pg (27.0-31.2); Mean Corpuscular Volume 76.7 fl (81-99); Mean Platelet Volume 7.9 fl (7.4-10.4); Monocytes # 0.3 K/mm3 (0.1-1.0); Neutrophils # 5.1 K/mm3 (1.8-7.8); Neutrophils % 76.5 % (37.0-80.0); Platelet Count 385 K/mm3 (142-424); Red Blood Count 3.78 M/mm3 (4.20-5.40); Red Cell Distribution Width 16.9 % (11.5-17.5); White Blood Count 6.7 K/mm3 (4.8-10.8)
[2021-10-01 10:03] LABS: Chloride 91 mmol/L (98-107); Potassium 3.6 mmoL/L (3.5-5.1); Sodium 135 mmol/L (136-145)
[2021-10-01 10:06] LABS: Blood Urea Nitrogen 22 mg/dl (7-17); Creatinine Clearance Estimated 35 mL/min (50-200); Estimated Glomerular Filt Rate 43 ml/min (>60); GFR (African American) 51 ML/MIN (>60)
[2021-10-01 10:07] LABS: Anion Gap 12.6 mEq/L (5-15); Calcium 9.2 mg/dl (8.4-10.2); Carbon Dioxide 35 mmol/L (22.0-30.0); Glucose 376 mg/dl (74-100)
== END ==
PROVIDERS: PCP Internal Medicine Adolescent Medicine; Visit Provider Internal Medicine
DX: R94.31 Abnormal electrocardiogram [ECG] [EKG] (principal); I10 Essential (primary) hypertension; Z99.3 Dependence on wheelchair; Z82.49 Family history of ischemic heart disease and other diseases of the circulatory system; E11.9 Type 2 diabetes mellitus without complications; Z79.84 Long term (current) use of oral hypoglycemic drugs; Z79.899 Other long term (current) drug therapy; L97.919 Non-pressure chronic ulcer of unspecified part of right lower leg with unspecified severity; E66.01 Morbid (severe) obesity due to excess calories; Z68.42 Body mass index [BMI] 45.0-49.9, adult; I70.239 Atherosclerosis of native arteries of right leg with ulceration of unspecified site; I77.1 Stricture of artery
CPT/HCPCS: 36247; 75716; 80048; 85025; 99152; C1725; C1769; C9803; J1644; Q9966; U0003; U0005

== ENCOUNTER → 2021-10-14 07:41 | Outpatient (CLI) | payer MEDICARE, MEDICAID, SELFPAY ==
[2021-10-14 13:59] LABS: Basophils % 0.1 % (0.1-2.0); Eosinophils % 0.5 % (0.1-12.0); Hematocrit 28.9 % (37.0-47.0); Lymphocytes # 1.3 K/mm3 (0.7-4.5); Lymphocytes % 24.2 % (10-50); Mean Corpuscular Hemoglobin 24.3 pg (27.0-31.2); Mean Corpuscular Volume 78.5 fl (81-99); Mean Platelet Volume 8.5 fl (7.4-10.4); Monocytes # 0.3 K/mm3 (0.1-1.0); Monocytes % 5.3 % (1.7-9.3); Neutrophils # 3.6 K/mm3 (1.8-7.8); Neutrophils % 69.9 % (37.0-80.0); Platelet Count 298 K/mm3 (142-424); Red Blood Count 3.68 M/mm3 (4.20-5.40); Red Cell Distribution Width 16.8 % (11.5-17.5); White Blood Count 5.2 K/mm3 (4.8-10.8)
[2021-10-14 14:09] LABS: Alanine Aminotransferase 18 U/L (12-78); Albumin Level 3.7 g/dl (3.5-5.0); Albumin/Globulin Ratio 1.5 (1.1-1.8); Alkaline Phosphatase 109 U/L (38-126); Anion Gap 12.7 mEq/L (5-15); Aspartate Amino Transferase 23 U/L (14-36); Bilirubin,Total 0.2 mg/dl (0.2-1.3); Blood Urea Nitrogen 21 mg/dl (7-17); Calcium 9.3 mg/dl (8.4-10.2); Carbon Dioxide 31 mmol/L (22.0-30.0); Chloride 97 mmol/L (98-107); Chol/HDL Ratio 4.3 (1-3.5); Cholesterol 155 mg/dl (140-200); Estimated Glomerular Filt Rate 39 ml/min (>60); GFR (African American) 47 ML/MIN (>60); Globulin 2.5 g/dL (1.3-3.2); Glucose 224 mg/dl (74-100); HDL Cholesterol 36 mg/dl (40-60); Potassium 3.7 mmoL/L (3.5-5.1); Sodium 137 mmol/L (136-145); Total Protein,Serum 6.2 g/dl (6.3-8.2); Triglycerides 264 mg/dl (30-150); VLDL Cholesterol 53 mg/dL (0-40)
[2021-10-14 14:20] LABS: Direct LDL Cholesterol 82.13 mg/dL (100-129)
[2021-10-14 16:01] LABS: Hemoglobin A1C 9.5 % (4.0-6.0)
[2021-10-20 11:10] LABS: Oxcarbazepine 23 ug/mL (10-35)
== END ==
PROVIDERS: Visit Provider Nurse Practitioner Family
DX: I10 Essential (primary) hypertension (principal); E78.5 Hyperlipidemia, unspecified; E11.9 Type 2 diabetes mellitus without complications; R56.9 Unspecified convulsions; Z79.84 Long term (current) use of oral hypoglycemic drugs
CPT/HCPCS: 36415; 80053; 80061; 80183; 83036; 85025